=== PATIENT | female | born 1940 | race Caucasian/White ===

== ENCOUNTER 2016-11-24 09:47 | Outpatient (CLI) | payer MEDICARE, BC | END 2016-11-24 09:48 | disposition home or self-care (01) | DX: E78.5 Hyperlipidemia, unspecified (principal); R73.01 Impaired fasting glucose; I10 Essential (primary) hypertension; E74.39 Other disorders of intestinal carbohydrate absorption ==

== ENCOUNTER 2017-01-06 18:20 | Emergency (ER) | payer MEDICARE, BC ==
[2017-01-06] MEDS ORDERED: HYDROcod/ACETAM 5/325 MG TABLET PO STA (18:51)
[2017-01-06] MEDS ORDERED: HYDROcod/ACETAM 5/325 MG TABLET ONE (19:06)
== END 2017-01-06 19:22 | disposition home or self-care (01) ==
DX: S42.291A Other displaced fracture of upper end of right humerus, initial encounter for closed fracture (principal); W01.0XXA Fall on same level from slipping, tripping and stumbling without subsequent striking against object, initial encounter; Y93.01 Activity, walking, marching and hiking; Y92.481 Parking lot as the place of occurrence of the external cause; R03.0 Elevated blood-pressure reading, without diagnosis of hypertension; M19.90 Unspecified osteoarthritis, unspecified site; Z85.3 Personal history of malignant neoplasm of breast
CPT/HCPCS: 73060; 99283; 99284; A9270

== ENCOUNTER 2017-01-16 10:47 | Outpatient (CLI) | payer MEDICARE, BC | END 2017-01-16 10:48 | disposition home or self-care (01) | DX: S42.221A 2-part displaced fracture of surgical neck of right humerus, initial encounter for closed fracture (principal) ==

== ENCOUNTER 2017-02-26 12:58 | Outpatient (CLI) | payer MEDICARE, BC | END 2017-02-26 12:59 | disposition home or self-care (01) | DX: C50.411 Malignant neoplasm of upper-outer quadrant of right female breast (principal) ==

== ENCOUNTER 2017-05-17 11:00 | Outpatient (CLI) | payer MEDICARE, BC ==
--- NOTE | 2017-05-17 17:16 | XRAY Report ---
TWO VIEW RIGHT SHOULDER: 05/17/2017 CLINICAL INDICATION: Fracture followup. Internal and external rotational views of the right shoulder are compared to previous films of 2016. There is increased callus formation at the proximal humeral fracture site. Alignment appears stable. Degenerative changes appear stable. No new fracture is appreciated. IMPRESSION: CONTINUED HEALING OF THE PROXIMAL RIGHT HUMERAL FRACTURE. JOB #: [id number] EXT JOB #:
== END 2017-05-17 11:01 | disposition home or self-care (01) ==
LOC: DI.N 11:00
PROVIDERS: ATTEND Orthopaedic Surgery
DX: S42.221D 2-part displaced fracture of surgical neck of right humerus, subsequent encounter for fracture with routine healing (principal)

== ENCOUNTER 2017-08-20 12:50 | Outpatient (CLI) | payer MEDICARE, BC ==
--- NOTE | 2017-08-20 15:53 | Mammography Report ---
DIGITAL DIAGNOSTIC BILATERAL MAMMOGRAM: 08/20/2017 CLINICAL INDICATION: A 76-year-old with personal history of right breast cancer status post lumpecto my and radiation therapy. TECHNIQUE: Bilateral CC and MLO views, right true lateral and spot magnification views. COMPARISON: 02/26/2017, 07/27/2016, 02/07/2016, 08/10/2015, 06/30/2015, 06/24/2015, 10/10/2006. FINDINGS: The breasts demonstrate scattered fibroglandular densities bilaterally. Postoperative and post-treatment changes in the right upper outer quadrant are stable. No suspicious masses, clustere d microcalcifications, or regions of architectural distortion are identified. IMPRESSION: BENIGN FINDINGS. RECOMMENDATION: Routine annual mammography unless otherwise clinically indicated. BIRADS CATEGORY 2 - BENIGN FINDINGS. STANDARD QUALIFYING STATEMENTS 1. This examination was reviewed with the aid of Computer-Aided Detection (CAD). 2. A negative or benign imaging report should not delay biopsy if clinically suspicious findings are present. Consider surgical consultation if warranted. More than 5% of cancers are not identified by i maging. 3. Dense breasts may obscure an underlying neoplasm. 14:9:57 JOB #: [id number] EXT JOB #:[id number]
== END 2017-08-20 12:51 | disposition home or self-care (01) ==
LOC: DI 12:50
PROVIDERS: ATTEND Internal Medicine Hematology & Oncology
DX: C50.411 Malignant neoplasm of upper-outer quadrant of right female breast (principal)
CPT/HCPCS: 77066

== ENCOUNTER 2018-01-10 08:49 | Outpatient (CLI) | payer MEDICARE, BC ==
[2018-01-10 13:22] LABS: HB2 TOTAL 14.4 g/dL; HEMOGLOBIN A1C 0.54 g/dL; HEMOGLOBIN A1C % 5.6 % (4.6-6.2)
[2018-01-10 13:25] LABS: ALBUMIN 4.1 g/dL (3.2-5.5); ALBUMIN/GLOBULIN RATIO 1.3 (1.0-2.2); ALKALINE PHOSPHATASE 70 IU/L (42-121); ALT ALANINE AMINOTRANSFERASE 22 IU/L (10-60); AST ASPARTATE AMINOTRANSFERASE 26 IU/L (10-42); BILIRUBIN,TOTAL 0.9 mg/dL (0.2-1.0); BUN - BLOOD UREA NITROGEN 14 mg/dL (6-20); CARBON DIOXIDE - CO2 26 mmol/L (21-32); CHLORIDE 104 mmol/L (101-111); CHOL/HDL RATIO 6.2 (<4.4); CHOLESTEROL 255 mg/dL; CREATININE 0.6 mg/dL (0.4-1.0); GFR - MDRD 97 (>89); GLUCOSE 104 mg/dL (70-100); HDL CHOLESTEROL 41 mg/dL; LDL CHOLESTEROL,CALCULATED 172 mg/dL; LDL/HDL RATIO 4.2 (<4.4); SODIUM 138 mmol/L (135-145); TOTAL PROTEIN 7.2 g/dL (6.7-8.2); VLDL CHOLESTEROL 42 mg/dL
== END 2018-01-10 08:50 ==
LOC: LAB.WCP 08:49
PROVIDERS: ATTEND Family Medicine
DX: I35.0 Nonrheumatic aortic (valve) stenosis (principal); R73.09 Other abnormal glucose; E78.5 Hyperlipidemia, unspecified; I10 Essential (primary) hypertension; E74.39 Other disorders of intestinal carbohydrate absorption
CPT/HCPCS: 36415; 80053; 80061; 83036; 83721

== ENCOUNTER 2018-08-02 09:29 | Outpatient (CLI) | payer MEDICARE, BC ==
--- NOTE | 2018-08-02 12:45 | Mammography Report ---
Reason: VIK VELASQUEZ wTOMO Procedure Date: 08/02/2018 Accession Number: [id number] / [id number] Procedure: DAVID - Diagnostic Bilat 3D [place] CPT Code: 77448 FULL RESULT: EXAM: Diagnostic Bilat 3D [place] DATE: 08/02/2018 10:29 AM CLINICAL HISTORY: 77-year-old female with personal history of right breast cancer status post lumpectomy and radiation. TECHNIQUE: Bilateral CC and MLO views as well as a right exaggerated cc view were obtained in 2-D technique. 3-D bilateral CC and MLO views were also obtained. COMPARISON: 08/20/2017, 02/26/2017, 07/27/2016, 02/07/2016. FINDINGS: The breasts demonstrate heterogeneously dense fibroglandular parenchyma bilaterally. Stable postsurgical and postradiation findings are seen in the right breast. No suspicious mass, architectural distortion or microcalcifications are identified. IMPRESSION: Benign findings RECOMMENDATION: Recommend routine annual Screening mammography unless otherwise clinically indicated. BIRADS CATEGORY 2: Benign findings STANDARD QUALIFYING STATEMENTS: 1. This examination was not reviewed with the aid of Computer-Aided Detection (CAD). 2. A negative or benign imaging report should not delay biopsy if clinically suspicious findings are present. Consider surgical consultation if warrented. More than 5% of cancers are not identified by imaging. 3. Dense breasts may obscure an underlying neoplasm. 4. This examination was reviewed with the aid of 3D imaging (tomography).
== END 2018-08-02 09:30 | disposition home or self-care (01) ==
LOC: DI 09:29
PROVIDERS: ATTEND Internal Medicine Hematology & Oncology
DX: C50.411 Malignant neoplasm of upper-outer quadrant of right female breast (principal)
CPT/HCPCS: 77062

== ENCOUNTER 2019-03-20 08:00 | Outpatient (CLI) | payer MEDICARE, BC ==
[2019-03-20 18:59] LABS: BASOPHILS # (AUTO) 0.1 10^3/uL (0.0-0.1); BASOPHILS % (AUTO) 1.1 %; EOSINOPHILS # (AUTO) 0.4 10^3/uL (0.0-0.7); EOSINOPHILS % (AUTO) 5.3 %; HGB - HEMOGLOBIN 12.8 g/dL (12.0-16.0); LYMPHOCYTES # (AUTO) 2.5 10^3/uL (1.5-3.5); LYMPHOCYTES % (AUTO) 35.8 %; MEAN CORPUSCULAR HEMOGLOBIN 31.8 pg (27.0-31.0); MEAN CORPUSCULAR HGB CONC 33.5 g/dL (32.0-36.0); MEAN PLATELET VOLUME 8.7 fL (7.9-10.8); MONOCYTES # (AUTO) 0.7 10^3/uL (0.0-1.0); MONOCYTES % (AUTO) 10.2 %; NEUTROPHILS # (AUTO) 3.3 10^3/uL (1.5-6.6); NEUTROPHILS % (AUTO) 47.6 %; PLT - PLATELET COUNT 189 10^3/uL (130-450); RED BLOOD COUNT 4.03 10^6/uL (4.20-5.40); RED CELL DISTRIBUTION WIDTH 12.8 % (12.0-15.0)
[2019-03-20 19:12] LABS: ALBUMIN/GLOBULIN RATIO 1.4 (1.0-2.2); ALKALINE PHOSPHATASE 67 IU/L (42-121); ALT ALANINE AMINOTRANSFERASE 18 IU/L (10-60); AST ASPARTATE AMINOTRANSFERASE 22 IU/L (10-42); BILIRUBIN,TOTAL 0.5 mg/dL (0.2-1.0); BUN - BLOOD UREA NITROGEN 16 mg/dL (6-20); CALCIUM 9.2 mg/dL (8.5-10.3); CARBON DIOXIDE - CO2 27 mmol/L (21-32); CHLORIDE 105 mmol/L (101-111); CHOL/HDL RATIO 7.1 (<4.4); CHOLESTEROL 256 mg/dL; CREATININE 0.7 mg/dL (0.4-1.0); GFR - MDRD 81 (>89); GLUCOSE 96 mg/dL (70-100); HDL CHOLESTEROL 36 mg/dL; LDL CHOLESTEROL,CALCULATED 144 mg/dL; SODIUM 141 mmol/L (135-145); TOTAL PROTEIN 6.9 g/dL (6.7-8.2); VLDL CHOLESTEROL 76 mg/dL
[2019-03-20 19:36] LABS: HB2 TOTAL 13.2 g/dL; HEMOGLOBIN A1C 0.55 g/dL
== END 2019-03-20 23:59 | disposition home or self-care (01) ==
LOC: LAB.WCP 08:00
PROVIDERS: ATTEND Family Medicine
DX: I10 Essential (primary) hypertension (principal); R73.02 Impaired glucose tolerance (oral); E78.5 Hyperlipidemia, unspecified
CPT/HCPCS: 36415; 80053; 80061; 83036; 83721; 85025

== ENCOUNTER 2019-08-05 10:28 | Outpatient (CLI) | payer MEDICARE, BC ==
--- NOTE | 2019-08-06 08:41 | DEXA Report ---
Reason: POST MENOPAUSAL Procedure Date: 08/05/2019 Accession Number: [id number] / [id number] Procedure: DEX - Dexa Spine and/or Hip CPT Code: FULL RESULT: EXAM: Dexa Spine and/or Hip DATE: 08/05/2019 11:13 AM CLINICAL HISTORY: POST MENOPAUSAL TECHNIQUE: Dual energy x-ray absorptiometry (DXA) was performed on a [employer] System. Regions measured are the AP Spine, femoral neck, and if needed forearm. COMPARISON: 08/21/2017. In accordance with the International Society for Clinical Densitometry (ISCD) guidelines, data from previous exams may be reanalyzed using current recommendations and techniques. This is done to allow a more accurate basis for comparison with the current study. FINDINGS: The data for the lumbar spine is as follows: BMD (g/cm/cm) T-SCORE Z-SCORE REGION L1 1.161 0.3 1.5 L2 1.114 -0.7 0.5 L3 1.133 -0.6 0.7 L4 1.293 0.8 2.0 TOTAL 1.179 0.0 1.2 NOTE: All evaluable vertebrae are used for classification The data for the hip is as follows: BMD (g/cm/cm) T-SCORE Z-SCORE REGION Neck 0.920 -0.8 0.8 TOTAL 0.939 -0.5 0.9 NOTE: The femoral neck or total proximal femur, whichever is lowest, is used for classification. DXA RESULTS SUMMARY: Spine SCAN DATE AGE BMD CHANGE VS CHANGE VS PREVIOUS PREVIOUS % 9/05/2019 [age] 1.89 0.006 0.5 08/21/2017 [age] 1[age]173 * Denotes significant change at the 95% confidence level. Denotes dissimilar scan types or analysis methods. DXA RESULTS SUMMARY: Hip SCAN DATE AGE BMD CHANGE VS CHANGE VS PREVIOUS PREVIOUS % [birth year]05[birth year]2019 [age] 0[age]939 0.008 0.9 08/21/2017 [age] 0[age]931 * Denotes significant change at the 95% confidence level. Denotes dissimilar scan types or analysis methods. IMPRESSION: THE WHO CLASSIFICATION BASED ON THE INTERNATIONAL REFERENCE STANDARD IS NORMAL. THE FRACTURE RISK IS NOT INCREASED. RECOMMENDATION: Patients with diagnosis of osteoporosis or osteopenia should have regular bone mineral density assessment. For those eligible for Medicare, routine testing is allowed once every 2 years. Testing frequency can be increased for patients who have rapidly progressing disease or for those who are receiving medical therapy to restore bone mass. COMMENT: World Health Organization (WHO) definitions for osteoporosis and osteopenia: NORMAL BMD: T-score at -1.0 or higher, fracture risk is low OSTEOPENIA BMD: T-score between -1.0 and -2.5, fracture risk is increased. OSTEOPOROSIS BMD: T-score at -2.5 or lower, fracture risk is high. National Osteoporosis Foundation recommends: 1. Obtain adequate dietary calcium (at least 1200 mg per day) and vitamin D (400-800 international units per day). 2. Participate, as appropriate, in regular weightbearing and muscle-strengthening exercise. 3. Avoid tobacco use and reduce alcohol and caffeine intake. 4. For more detailed information see the website at www.NOF.org.
== END 2019-08-05 10:29 | disposition home or self-care (01) ==
LOC: DI 10:28
PROVIDERS: ATTEND Internal Medicine Hematology & Oncology
DX: Z78.0 Asymptomatic menopausal state (principal)
CPT/HCPCS: 77080

== ENCOUNTER 2019-08-05 10:29 | Outpatient (CLI) | payer MEDICARE, BC ==
--- NOTE | 2019-08-05 12:14 | Mammography Report ---
Reason: RT BREAST CA Procedure Date: 08/05/2019 Accession Number: [id number] / [id number] Procedure: DAVID - Diagnostic Dig Bilat CPT Code: FULL RESULT: EXAM: Diagnostic Dig Bilat DATE: 08/05/2019 11:43 AM CLINICAL HISTORY: Diagnostic examination. Personal history of breast cancer status post right breast lumpectomy in 2014. TECHNIQUE: (B) - Bilateral CC, laterally exaggerated CC, MLO views were obtained. Right ML view was obtained. COMPARISON: 08/02/2018 through 06/24/2015. PARENCHYMAL PATTERN: (A) - The breast(s) demonstrate(s) scattered fibroglandular densities. FINDINGS: Postlumpectomy changes in the right breast are again seen, long-term expected typically benign evolution. There are no suspicious masses, calcifications, or areas of distortion. IMPRESSION: Benign findings. BI-RADS category 2. RECOMMENDATION: (ANNUAL) - Recommend routine annual screening mammography. BI-RADS CATEGORY: (2) - Benign Findings. STANDARD QUALIFYING STATEMENTS: 1. This examination was not reviewed with the aid of Computer-Aided Detection (CAD). 2. A negative or benign imaging report should not preclude biopsy if clinically suspicious findings are present. 3. Dense breasts may obscure an underlying neoplasm. 4. This examination was reviewed with the aid of 3D breast imaging (tomosynthesis).
== END 2019-08-05 10:30 | disposition home or self-care (01) ==
LOC: DI 10:29
PROVIDERS: ATTEND Internal Medicine Hematology & Oncology
DX: Z12.31 Encounter for screening mammogram for malignant neoplasm of breast (principal); C50.411 Malignant neoplasm of upper-outer quadrant of right female breast
CPT/HCPCS: 77066

== ENCOUNTER 2020-03-09 11:33 | Outpatient (CLI) | payer MEDICARE, BC ==
[2020-03-09 14:14] LABS: ALBUMIN/GLOBULIN RATIO 1.3 (1.0-2.2); BILIRUBIN,TOTAL 0.8 mg/dL (0.2-1.0); CALCIUM 9.3 mg/dL (8.5-10.3); CREATININE 0.7 mg/dL (0.4-1.0); TOTAL PROTEIN 7.1 g/dL (6.7-8.2)
== END 2020-03-09 23:59 | disposition home or self-care (01) ==
LOC: LAB.WCP 11:33
PROVIDERS: ATTEND Internal Medicine Cardiovascular Disease
DX: I42.8 Other cardiomyopathies (principal); I42.1 Obstructive hypertrophic cardiomyopathy
CPT/HCPCS: 36415; 80053

== ENCOUNTER 2020-08-27 10:35 | Outpatient (CLI) | payer MEDICARE, BC ==
--- NOTE | 2020-08-30 16:02 | Mammography Report ---
BILATERAL DIGITAL SCREENING MAMMOGRAM 3D/2D: 08/27/2020 CLINICAL: Routine screening. Personal history of right breast cancer. Routine screening. Comparison is made to exams dated: 08/05/2019 mammogram, 08/02/2018 mammogram, 08/20/2016 mammogram, 02/07/2016 mammogram, 08/10/2015 localization, and 07/28/2015 breast MRI - [facility]. The tissue of both breasts is heterogeneously dense. This may lower the sensitivity of mammograph y. There are benign post operative findings in the right breast. No significant masses, calcifications, or other findings are seen in either breast. There has been no significant interval change. IMPRESSION: BENIGN There is no mammographic evidence of malignancy. A 1 year screening mammogram is recommended. This exam was interpreted at Station ID: [id number]. NOTE: For mammograms, a report in lay terms will be sent to the patient. Approximately 15% of breast malignancies will not be visualized mammographically. In the management of a palpable breast mass, a negative mammogram must not discourage biopsy of a clinically suspicious lesion. Electronically Signed By: Juan Borrego M.D. ddp/penrad:08/27/2020 13:36:11 ACR BI-RADS Category 2: Benign Finding(s) 3342F PARENCHYMAL PATTERN: (D) - The breast(s) demonstrate(s) heterogeneously dense fibroglandular florecita vanegas. BI-RADS CATEGORY: (2) - 2 RECOMMENDATION: (ANNUAL) - Recommend routine annual screening mammography. [id number] 1 year screening LATERALITY: (B)
== END 2020-08-27 10:36 | disposition home or self-care (01) ==
LOC: DI.N 10:35
PROVIDERS: ATTEND Internal Medicine Hematology & Oncology
DX: Z12.31 Encounter for screening mammogram for malignant neoplasm of breast (principal); Z08 Encounter for follow-up examination after completed treatment for malignant neoplasm; Z85.3 Personal history of malignant neoplasm of breast
CPT/HCPCS: 77063; 77067

== ENCOUNTER 2021-04-12 07:00 | Outpatient (CLI) | payer MEDICARE, BC ==
--- NOTE | 2021-04-12 15:14 | XRAY Report ---
PROCEDURE: Shoulder 3 View RT INDICATIONS: R SHOULDER PX TECHNIQUE: 3 views of the shoulder were acquired. COMPARISON: None. FINDINGS: Bones: No acute fractures or dislocations. No suspicious bony lesions. Visualized ribs appear inta ct. There is deformity of the right humeral head consistent with previous fracture. Severe acromiocl avicular degenerative narrowing is present. Glenohumeral narrowing is also noted. Soft tissues: No suspicious soft tissue calcifications. IMPRESSION: Significant degenerative change of the shoulder including acromioclavicular and glenohum eral narrowing. Arthritic change is noted secondary to prior humeral fracture. Reviewed by: Zayra Heard MD on 04/12/2021 3:12 PM PDT Approved by: Zayra Heard MD on 04/12/2021 3:12 PM PDT Station ID: [id number]
== END 2021-04-12 23:59 | disposition home or self-care (01) ==
LOC: DI.N 07:00
PROVIDERS: ATTEND Physician Assistant
DX: M19.111 Post-traumatic osteoarthritis, right shoulder (principal); S42.291S Other displaced fracture of upper end of right humerus, sequela

== ENCOUNTER 2021-08-04 13:53 | Outpatient (CLI) | payer MEDICARE, BC ==
--- NOTE | 2021-08-04 14:55 | DEXA Report ---
PROCEDURE: DEXA Spine and/or Hip INDICATIONS: POST MENOPAUSAL TECHNIQUE: Dual energy x-ray absorptiometry (DXA) was performed on a [employer] System. Regions measur ed are the AP Spine, femoral neck, and if needed forearm. COMPARISON: August 05, 2019. FINDINGS: Lumbar Spine: Bone Mineral Density 1.208 g/cm/cm,T score 0.1, normal Left Femoral Neck: Bone Mineral Density 0.919 g/cm/cm, T score -0.7, normal (T score greater or equal to -1.0: NORMAL) (T score from -1.1 to -2.4: OSTEOPENIA) (T score less than or equal to -2.5 to: OSTEOPOROSIS) Impression: No appreciable osteoporosis or osteopenia. Patients with diagnosis of osteoporosis or osteopenia should have regular bone mineral density assess ment. For those eligible for Medicare, routine testing is allowed once every 2 years. Testing frequ ency can be increased for patients who have rapidly progressing disease or for those who are receivin g medical therapy to restore bone mass. Reviewed by: Chester Menchaca MD on 08/04/2021 2:54 PM PDT Approved by: Chester Menchaca MD on 08/04/2021 2:54 PM PDT Station ID: [id number]
== END 2021-08-04 13:54 | disposition home or self-care (01) ==
LOC: DI 13:53
PROVIDERS: ATTEND Internal Medicine Hematology & Oncology
DX: Z78.0 Asymptomatic menopausal state (principal)

== ENCOUNTER 2021-08-22 13:25 | Outpatient (CLI) | payer MEDICARE, BC ==
--- NOTE | 2021-08-23 08:02 | Mammography Report ---
BILATERAL DIGITAL SCREENING MAMMOGRAM 3D/2D: 08/22/2021 CLINICAL: Routine screening. Personal history of right breast cancer. Comparison is made to exams dated: 08/27/2020 mammogram, 08/05/2019 mammogram, and 08/02/2018 mammogr am - [facility]. The tissue of both breasts is heterogeneously dense. This may low er the sensitivity of mammography. There are benign post operative findings in the right breast. No significant masses, calcifications, or other findings are seen in either breast. There has been no significant interval change. IMPRESSION: BENIGN There is no mammographic evidence of malignancy. A 1 year screening mammogram is recommended. This exam was interpreted at Station ID: [id number]. NOTE: For mammograms, a report in lay terms will be sent to the patient. Approximately 15% of breast malignancies will not be visualized mammographically. In the management of a palpable breast mass, a negative mammogram must not discourage biopsy of a clinically suspicious lesion. Electronically Signed By: Sergio bergman/leno:08/22/2021 16:56:54 ACR BI-RADS Category 2: Benign Finding(s) 3342F PARENCHYMAL PATTERN: (D) - The breast(s) demonstrate(s) heterogeneously dense fibroglandular florecita vanegas. BI-RADS CATEGORY: (2) - 2 RECOMMENDATION: (ANNUAL) - Recommend routine annual screening mammography. [id number] 1 year screening LATERALITY: (B)
== END 2021-08-22 13:26 | disposition home or self-care (01) ==
LOC: DI 13:25
PROVIDERS: ATTEND Internal Medicine Hematology & Oncology
DX: Z12.31 Encounter for screening mammogram for malignant neoplasm of breast (principal); Z08 Encounter for follow-up examination after completed treatment for malignant neoplasm; Z85.3 Personal history of malignant neoplasm of breast; Z79.811 Long term (current) use of aromatase inhibitors

== ENCOUNTER 2021-11-22 08:00 | Outpatient (CLI) | payer MEDICARE, BC ==
--- NOTE | 2021-11-22 14:00 | XRAY Report ---
PROCEDURE: Tib/Fib LT INDICATIONS: Left foot and ankle pain TECHNIQUE: 2 views of the tibia and fibula were acquired. COMPARISON: None FINDINGS: No fracture. Grossly anatomic alignment of the ankle and knee. No suspicious lytic or blastic osseous lesion. No periosteal reaction identified. Regional soft tissues are normal. IMPRESSION: No acute or otherwise significant finding. Reviewed by: Judd Sierra MD on 11/22/2021 1:58 PM PST Approved by: Judd Sierra MD on 11/22/2021 1:58 PM PST Station ID: [id number]
== END 2021-11-22 23:55 ==
LOC: DI.N 08:00
PROVIDERS: ATTEND Nurse Practitioner
DX: M25.572 Pain in left ankle and joints of left foot (principal)

== ENCOUNTER 2022-03-14 08:25 | Outpatient (CLI) | payer MEDICARE, BC ==
[2022-03-14 11:51] LABS: BASOPHILS # (AUTO) 0.1 10^3/uL (0.0-0.1); EOSINOPHILS # (AUTO) 0.4 10^3/uL (0.0-0.7); EOSINOPHILS % (AUTO) 5.1 %; HCT - HEMATOCRIT 40.9 % (37.0-47.0); HGB - HEMOGLOBIN 13.3 g/dL (12.0-16.0); LYMPHOCYTES # (AUTO) 2.4 10^3/uL (1.5-3.5); LYMPHOCYTES % (AUTO) 32.7 %; MEAN CORPUSCULAR HEMOGLOBIN 31.6 pg (27.0-31.0); MEAN CORPUSCULAR HGB CONC 32.5 g/dL (32.0-36.0); MEAN CORPUSCULAR VOLUME 97.1 fL (81.0-99.0); MEAN PLATELET VOLUME 10.7 fL (7.9-10.8); MONOCYTES # (AUTO) 0.7 10^3/uL (0.0-1.0); MONOCYTES % (AUTO) 9.8 %; NEUTROPHILS # (AUTO) 3.7 10^3/uL (1.5-6.6); NEUTROPHILS % (AUTO) 50.8 %; PLT - PLATELET COUNT 215 10^3/uL (130-450); RED BLOOD COUNT 4.21 10^6/uL (4.20-5.40); RED CELL DISTRIBUTION WIDTH 12.4 % (12.0-15.0); WHITE BLOOD COUNT 7.2 x10^3/uL (4.8-10.8)
[2022-03-14 12:23] LABS: ALBUMIN/GLOBULIN RATIO 1.2 (1.0-2.2); ALKALINE PHOSPHATASE 54 IU/L (42-121); ALT ALANINE AMINOTRANSFERASE 21 IU/L (10-60); AST ASPARTATE AMINOTRANSFERASE 23 IU/L (10-42); BILIRUBIN,TOTAL 0.8 mg/dL (0.2-1.0); BUN - BLOOD UREA NITROGEN 21 mg/dL (6-20); CALCIUM 9.3 mg/dL (8.5-10.3); CARBON DIOXIDE - CO2 28 mmol/L (21-32); CHLORIDE 103 mmol/L (101-111); CHOL/HDL RATIO 6.3 (<4.4); CHOLESTEROL 258 mg/dL; CREATININE 0.8 mg/dL (0.4-1.0); GFR - MDRD 69 (>89); GLUCOSE 123 mg/dL (70-100); HDL CHOLESTEROL 41 mg/dL; LDL CHOLESTEROL,CALCULATED 176 mg/dL; LDL/HDL RATIO 4.3 (<4.4); POTASSIUM 4.2 mmol/L (3.5-5.0); SODIUM 139 mmol/L (135-145); TOTAL PROTEIN 7.3 g/dL (6.7-8.2); TRIGLYCERIDES 205 mg/dL; VLDL CHOLESTEROL 41 mg/dL
[2022-03-14 12:31] LABS: THYROID STIMULATING HORMONE 3.09 uIU/mL (0.34-5.60)
[2022-03-14 12:45] LABS: ESTIMATED AVERAGE GLUCOSE 117 mg/dL (70-100); HEMOGLOBIN A1c% 5.7 % (4.27-6.07)
== END 2022-03-14 08:26 | disposition home or self-care (01) ==
LOC: LAB.N 08:25
PROVIDERS: ATTEND Nurse Practitioner Family
DX: I10 Essential (primary) hypertension (principal); R73.9 Hyperglycemia, unspecified; E78.5 Hyperlipidemia, unspecified
CPT/HCPCS: 36415; 80053; 80061; 83036; 83721; 84443; 85025

== ENCOUNTER 2022-08-22 10:40 | Outpatient (CLI) | payer MEDICARE, BC ==
--- NOTE | 2022-08-23 12:13 | Mammography Report ---
BILATERAL DIGITAL SCREENING MAMMOGRAM 3D/2D: 08/22/2022 CLINICAL: Routine screening. Personal history of right breast cancer. Comparison is made to exams dated: 08/22/2021 mammogram, 08/27/2020 mammogram, 08/05/2019 mammogram, a nd 08/02/2018 mammogram - [facility]. Both breasts are heterogeneously dense, which may obscure small masses (category c / 51-75% glandular tissue). There are benign post operative findings in the right breast. No significant masses, calcifications, or other findings are seen in either breast. There has been no significant interval change. IMPRESSION: BENIGN There is no mammographic evidence of malignancy. A 1 year screening mammogram is recommended. This exam was interpreted at Station ID: [id number]. NOTE: For mammograms, a report in lay terms will be sent to the patient. Approximately 15% of breast malignancies will not be visualized mammographically. In the management of a palpable breast mass, a negative mammogram must not discourage biopsy of a clinically suspicious lesion. Electronically Signed By: Sergio bergman/leno:08/22/2022 15:31:08 ACR BI-RADS Category 2: Benign Finding(s) 3342F PARENCHYMAL PATTERN: (D) - The breast(s) demonstrate(s) heterogeneously dense fibroglandular florecita vanegas. BI-RADS CATEGORY: (2) - 2 RECOMMENDATION: (ANNUAL) - Recommend routine annual screening mammography. [id number] 1 year screening LATERALITY: (B)
== END 2022-08-22 10:41 | disposition home or self-care (01) ==
LOC: DI.N 10:40
DX: Z12.31 Encounter for screening mammogram for malignant neoplasm of breast (principal); Z85.3 Personal history of malignant neoplasm of breast

== ENCOUNTER 2023-01-09 10:22 | Emergency (ER) | payer MEDICARE, BC ==
--- NOTE | 2023-01-09 12:51 | ED Physician Documentation ---
History of Present Illness - Stated complaint Stated Complaint: PAIN S/P FALL - Chief complaint Chief Complaint: Trauma Ch/Bk - History obtained from History obtained from: Patient - Additonal information Additional information: The patient comes to the emergency department chief complaint of ground-level fall 2 days ago and rectal bleeding that started yesterday. The patient states that she tripped and fell 2 days ago and landed on a mat. She states she landed on her left hip but did not hit her head or lose consciousness. She has been able to ambulate on the hip since, though she did have to scoot herself across the floor in order to grasp something to help her stand up. The patient states she felt more or less fine after the fall but the next morning, she went to have a bowel movement and noticed that there was bright red blood in the toilet bowl. Patient denies any abdominal pain, nausea, vomiting, or lightheadedness. She is not on any anticoagulants. She denies having this happen before although she does have a history of some hemorrhoids which are still present. The patient states that several hours later, she felt a strong urge to have a bowel movement but she was incontinent prior to getting to the toilet and that it just seemed to be blood. The patient has not had any episodes since. She has had a bowel movement this morning which she states was a very small nugget that was "as black as the damon of spades". She did not at that time noticed any bright red blood whatsoever. The patient otherwise feels normal except for some soreness in her hip and denies any other complaints at this time. She states she is concerned that something is "terribly wrong" and that she is bleeding internally. 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 : None HEENT: None Psych: Depression Musculoskeletal: Osteoarthritis, Fibromyalgia Derm: Rosacea - Past Surgical History Past Surgical History: Yes HEENT: Cataracts Derm: Skin cancer surgery - Present Medications Home Medications: Ambulatory Orders Medication Instructions Recorded Confirmed Cinnamon Bark [Cinnamon] 500 mg PO DAILY 02/20/13 10/02/22 Milk Thistle 240 mg PO DAILY 02/20/13 01/09/23 Multivits-Min/FA/Lycopene/Lut 1 each PO DAILY 02/20/13 01/09/23 [Centrum Silver Tablet] [place]-3 Fatty Acids [Fish Oil] 1,000 mg PO DAILY 02/20/13 01/09/23 Red Yeast Rice 600 mg PO BID 02/20/13 01/09/23 Sertraline [Zoloft] 50 mg PO DAILY 02/20/13 01/09/23 Ubidecarenone [Co Q-10] 200 mg PO DAILY 02/20/13 01/09/23 Flaxseed Oil [Flax Seed Oil] 1,000 mg PO DAILY 02/24/13 01/09/23 Cholecalciferol (Vitamin D3) 5,000 unit PO DAILY 08/09/15 01/09/23 [Vitamin D-3] Nadolol 40 mg PO DAILY 08/27/18 01/09/23 Anastrozole 1 mg PO DAILY #90 tablet 09/29/22 10/02/22 Disopyramide Phosphate [Norpace] 100 mg PO BID 01/09/23 01/09/23 - Allergies Allergies/Adverse Reactions: Allergies Allergy/AdvReac Type Severity Reaction Status Date / Time verapamil AdvReac Severe Confusion Verified 01/09/23 10:56 - Social History Does the pt smoke?: No Smoking Status: Never smoker Does the pt drink ETOH?: No Does the pt have substance abuse?: No - Immunizations Immunizations are current?: Yes PD ED PE NORMAL - Vitals Vital signs reviewed: Yes - General General: Alert and oriented X 3, No acute distress, Well developed/nourished - HEENT HEENT: Atraumatic, PERRL, EOMI, Moist mucous membranes - Neck Neck: Supple, no meningeal sign - Cardiac Cardiac: RRR, No murmur, Strong equal pulses - Respiratory Respiratory: No respiratory distress, Clear bilaterally - Abdomen Abdomen: Soft, Non tender, Non distended - Rectal Rectal: Other (Mild amount of brown bloody residue about the skin external to the anal opening. No palpable hemorrhoids. No rectal mass. No bright red blood on the glove after rectal exam.) - Derm Derm: Warm and dry - Extremities Extremities: No deformity - Neuro Neuro: Alert and oriented X 3 - Psych Psych: Normal mood, Normal affect Results - Vitals Vitals: Vital Signs - 24 hr 01/09/23 01/09/23 01/09/23 10:52 12:19 14:07 Temperature 36.5 C Heart Rate 55 L 54 L 58 L Respiratory 16 24 20 Rate Blood Pressure 145/68 H 138/120 H 115/61 O2 Saturation 97 96 93 Oxygen O2 Source Room air - Labs Labs: Laboratory Tests 01/09/23 01/09/23 13:28 13:28 WBC 8.3 RBC 3.38 L Hgb 10.4 L Hct 33.0 L MCV 97.6 MCH 30.8 MCHC 31.5 L RDW 12.9 Plt Count 154 MPV 9.7 Neut # (Auto) 4.0 Lymph # (Auto) 2.9 Sutter # (Auto) 1.1 H Eos # (Auto) 0.2 Baso # (Auto) 0.1 Absolute Nucleated RBC 0.00 Nucleated RBC % 0.0 Sodium 142 Potassium 4.0 Chloride 105 Carbon Dioxide 28 Anion Gap 9.0 BUN 21 H Creatinine 0.8 Estimated GFR (MDRD) 69 L Glucose 100 Calcium 8.6 Total Bilirubin 0.9 AST 24 ALT 20 Alkaline Phosphatase 54 Total Protein 6.4 L Albumin 3.4 Globulin 3.0 Albumin/Globulin Ratio 1.1 Lipase 42 PD Medical Decision Making - ED course Complexity details: reviewed results, re-evaluated patient, considered differential, d/w patient ED course: I discussed with the patient that the bright red blood per rectum that is dripping into the toilet bowl is most likely 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 It is possible that during the fall, she traumatized one of the hemorrhoidal veins and that this has made it susceptible to bleeding. However, the fact that she is no longer bleeding with bowel movements is promising, as is the fact that she is hemodynamically stable and has no abdominal pain or tenderness. I will work her up with laboratory studies including CBC and ER abdominal panel. These have been done and reviewed by me and are unremarkable, and specifically, show a normal hemoglobin. I felt the patient was stable for discharge home. Her exam is extremely benign and I did not find any evidence of concerning level bleeding or cause for this. I have advised the patient to follow-up with her primary care physician to discuss whether further investigation is needed in regard to her bleeding. Departure - Departure Disposition: 01 Home, Self Care Clinical Impression: BRBPR (bright red blood per rectum), Ground-level fall Condition: Stable Instructions: ED Hematochezia Stable Comments: Your blood work looks great. You have no bright red blood in your rectum today and you have not had any episodes of bleeding today. You most likely are bleeding from one of your internal hemorrhoids and this is stabilized. If you have further concerns about your hemorrhoids, you will need to follow-up with your primary doctor. There is nothing emergently to be done at this time and you are not losing a dangerous amount of blood. There is no evidence of internal organ damage and you have a completely benign abdominal exam and stable heart rate and blood pressure, which would not be the case if you are doing significant bleeding within your abdomen or if you had any serious organ injury. Please follow-up with your doctor for further concerns. Discharge Date/Time: 01/09/23 14:54
[2023-01-09 13:36] LABS: BASOPHILS # (AUTO) 0.1 10^3/uL (0.0-0.1); BASOPHILS % (AUTO) 0.6 %; EOSINOPHILS # (AUTO) 0.2 10^3/uL (0.0-0.7); EOSINOPHILS % (AUTO) 2.9 %; HGB - HEMOGLOBIN 10.4 g/dL (12.0-16.0); LYMPHOCYTES # (AUTO) 2.9 10^3/uL (1.5-3.5); LYMPHOCYTES % (AUTO) 34.7 %; MEAN CORPUSCULAR HEMOGLOBIN 30.8 pg (27.0-31.0); MEAN CORPUSCULAR HGB CONC 31.5 g/dL (32.0-36.0); MEAN CORPUSCULAR VOLUME 97.6 fL (81.0-99.0); MEAN PLATELET VOLUME 9.7 fL (7.9-10.8); MONOCYTES # (AUTO) 1.1 10^3/uL (0.0-1.0); MONOCYTES % (AUTO) 13.1 %; NEUTROPHILS % (AUTO) 48.2 %; PLT - PLATELET COUNT 154 10^3/uL (130-450); RED BLOOD COUNT 3.38 10^6/uL (4.20-5.40); RED CELL DISTRIBUTION WIDTH 12.9 % (12.0-15.0); WHITE BLOOD COUNT 8.3 x10^3/uL (4.8-10.8)
[2023-01-09 13:53] LABS: ALBUMIN 3.4 g/dL (3.2-5.5); ALBUMIN/GLOBULIN RATIO 1.1 (1.0-2.2); BILIRUBIN,TOTAL 0.9 mg/dL (0.2-1.0); CALCIUM 8.6 mg/dL (8.5-10.3); CREATININE 0.8 mg/dL (0.4-1.0); TOTAL PROTEIN 6.4 g/dL (6.7-8.2)
[2023-01-09 14:08] VITALS: BP 115/61
== END 2023-01-09 14:54 | disposition home or self-care (01) ==
LOC: ED 10:22
DX: K62.5 Hemorrhage of anus and rectum (principal)
CPT/HCPCS: 36415; 80053; 83690; 85025; 99283

== ENCOUNTER 2023-06-23 10:19 | Outpatient (CLI) | payer MEDICARE, BC ==
[2023-06-23 18:24] LABS: BASOPHILS # (AUTO) 0.1 10^3/uL (0.0-0.1); BASOPHILS % (AUTO) 0.6 %; EOSINOPHILS # (AUTO) 0.3 10^3/uL (0.0-0.7); EOSINOPHILS % (AUTO) 3.5 %; HCT - HEMATOCRIT 31.5 % (37.0-47.0); HGB - HEMOGLOBIN 9.2 g/dL (12.0-16.0); LYMPHOCYTES # (AUTO) 2.1 10^3/uL (1.5-3.5); LYMPHOCYTES % (AUTO) 21.5 %; MEAN CORPUSCULAR HEMOGLOBIN 25.4 pg (27.0-31.0); MEAN CORPUSCULAR HGB CONC 29.2 g/dL (32.0-36.0); MEAN PLATELET VOLUME 10.5 fL (7.9-10.8); MONOCYTES # (AUTO) 1.1 10^3/uL (0.0-1.0); MONOCYTES % (AUTO) 11.2 %; NEUTROPHILS % (AUTO) 62.6 %; PLT - PLATELET COUNT 348 10^3/uL (130-450); RED BLOOD COUNT 3.62 10^6/uL (4.20-5.40); WHITE BLOOD COUNT 9.7 x10^3/uL (4.8-10.8)
[2023-06-23 18:31] LABS: SLIDE REVIEW? Indicated
[2023-06-23 19:01] LABS: FERRITIN 43.1 ng/mL (11.0-306.8)
[2023-06-23 19:55] LABS: PLATELET MORPHOLOGY RARE GIANT PLATELETS (NORMAL)
[2023-06-23 19:56] LABS: PLATELET ESTIMATE, MANUAL NORMAL (130-450,000) (NORMAL)
== END 2023-06-23 10:20 | disposition home or self-care (01) ==
LOC: LAB.N 10:19
PROVIDERS: ATTEND Nurse Practitioner Family
DX: D64.9 Anemia, unspecified (principal)
CPT/HCPCS: 36415; 82607; 82728; 82746; 83540; 84466; 85025

== ENCOUNTER 2023-07-30 11:13 | Outpatient (CLI) | payer MEDICARE, BC ==
[2023-07-30 18:08] LABS: BASOPHILS # (AUTO) 0.1 10^3/uL (0.0-0.1); BASOPHILS % (AUTO) 0.8 %; EOSINOPHILS # (AUTO) 0.3 10^3/uL (0.0-0.7); EOSINOPHILS % (AUTO) 2.6 %; HCT - HEMATOCRIT 32.6 % (37.0-47.0); HGB - HEMOGLOBIN 9.6 g/dL (12.0-16.0); LYMPHOCYTES # (AUTO) 2.2 10^3/uL (1.5-3.5); LYMPHOCYTES % (AUTO) 20.9 %; MEAN CORPUSCULAR HEMOGLOBIN 28.8 pg (27.0-31.0); MEAN CORPUSCULAR HGB CONC 29.4 g/dL (32.0-36.0); MEAN CORPUSCULAR VOLUME 97.9 fL (81.0-99.0); MEAN PLATELET VOLUME 9.7 fL (7.9-10.8); MONOCYTES # (AUTO) 1.1 10^3/uL (0.0-1.0); MONOCYTES % (AUTO) 10.2 %; NEUTROPHILS # (AUTO) 6.9 10^3/uL (1.5-6.6); PLT - PLATELET COUNT 300 10^3/uL (130-450); RED BLOOD COUNT 3.33 10^6/uL (4.20-5.40); RED CELL DISTRIBUTION WIDTH 18.3 % (12.0-15.0); WHITE BLOOD COUNT 10.7 x10^3/uL (4.8-10.8)
[2023-07-30 18:42] LABS: FERRITIN 40.1 ng/mL (11.0-306.8)
== END 2023-07-30 11:14 | disposition home or self-care (01) ==
LOC: LAB.N 11:13
PROVIDERS: ATTEND Nurse Practitioner Family
DX: D64.9 Anemia, unspecified (principal)
CPT/HCPCS: 36415; 82607; 82728; 82746; 83540; 84466; 85025

== ENCOUNTER 2023-08-27 12:43 | Outpatient (CLI) | payer MEDICARE, BC ==
--- NOTE | 2023-08-29 12:03 | Mammography Report ---
BILATERAL DIGITAL SCREENING MAMMOGRAM 3D/2D: 08/27/2023 CLINICAL: Routine screening. Personal history of right breast cancer. Comparison is made to exams dated: 08/22/2022 mammogram, 08/22/2021 mammogram, 08/27/2020 mammogram, mammogram, 08/02/2018 mammogram, and 08/20/2017 mammogram - [facility]. There are scattered areas of fibroglandular density in both breasts (category b / 25%-50% glandular t issue). There are benign post operative findings in the right breast. No significant masses, calcifications, or other findings are seen in either breast. IMPRESSION: BENIGN There is no mammographic evidence of malignancy. A 1 year screening mammogram is recommended. This exam was interpreted at Station ID: [id number]. NOTE: For mammograms, a report in lay terms will be sent to the patient. Approximately 15% of breast malignancies will not be visualized mammographically. In the management of a palpable breast mass, a negative mammogram must not discourage biopsy of a clinically suspicious lesion. Electronically Signed By: Deonna Fisher M.D., PH.D eb/penrad:08/28/2023 22:55:42 letter sent: No_Letter ACR BI-RADS Category 2: Benign Finding(s) 3342F PARENCHYMAL PATTERN: (A) - The breast(s) demonstrate(s) scattered fibroglandular densities. BI-RADS CATEGORY: (2) - 2 Mammogram [id number] 1 year screening LATERALITY: (B)
== END 2023-08-27 12:44 | disposition home or self-care (01) ==
LOC: DI.N 12:43
DX: Z12.31 Encounter for screening mammogram for malignant neoplasm of breast (principal); R92.323 Mammographic fibroglandular density, bilateral breasts; Z85.3 Personal history of malignant neoplasm of breast

== ENCOUNTER 2023-09-10 11:30 | Outpatient (CLI) | payer MEDICARE, BC | END 2023-09-10 11:31 | disposition home or self-care (01) | LOC: LAB.N 11:30 | PROVIDERS: ATTEND Nurse Practitioner | DX: Z53.9 Procedure and treatment not carried out, unspecified reason (principal) ==

== ENCOUNTER 2024-02-25 13:26 | Outpatient (CLI) | payer MEDICARE, BC ==
[2024-02-25 17:43] LABS: BASOPHILS % (AUTO) 0.5 %; EOSINOPHILS % (AUTO) 18.2 %; HCT - HEMATOCRIT 40.9 % (37.0-47.0); HGB - HEMOGLOBIN 11.9 g/dL (12.0-16.0); LYMPHOCYTES % (AUTO) 23.5 %; MEAN CORPUSCULAR HEMOGLOBIN 26.9 pg (27.0-31.0); MEAN CORPUSCULAR HGB CONC 29.1 g/dL (32.0-36.0); MEAN CORPUSCULAR VOLUME 92.5 fL (81.0-99.0); MEAN PLATELET VOLUME 11.3 fL (7.9-10.8); MONOCYTES % (AUTO) 8.8 %; NEUTROPHILS % (AUTO) 48.5 %; PLT - PLATELET COUNT 268 10^3/uL (130-450); RED BLOOD COUNT 4.42 10^6/uL (4.20-5.40); RED CELL DISTRIBUTION WIDTH 18.9 % (12.0-15.0); WHITE BLOOD COUNT 11.1 x10^3/uL (4.8-10.8)
[2024-02-25 17:50] LABS: BAND NEUTROPHILS % (MANUAL) 0 %
[2024-02-25 18:40] LABS: ABNORMAL LYMPHS % (MANUAL) 5 %; BASOPHILS # (MANUAL) 0.1 10^3/uL (0-0.1); BASOPHILS % (MANUAL) 1 %; EOSINOPHILS # (MANUAL) 2.3 10^3/uL (0-0.7); LYMPHOCYTES # (MANUAL) 1.9 10^3/uL (1.5-3.5); LYMPHOCYTES % (MANUAL) 12 %; MONOCYTES # (MANUAL) 0.6 10^3/uL (0.0-1.0); NEUTROPHILS # (MANUAL) 6.2 10^3/uL (1.5-6.6)
[2024-02-25 18:43] LABS: DIFFERENTIAL COMMENT MANUAL DIFFERENTIAL; PLATELET ESTIMATE, MANUAL NORMAL (130-450,000) (NORMAL); PLATELET MORPHOLOGY NORMAL APPEARANCE (NORMAL); RBC MORPHOLOGY (MULTIPLE) 1+ HYPOCHROMASIA (NORMAL)
== END 2024-02-25 13:27 | disposition home or self-care (01) ==
LOC: LAB.N 13:26
PROVIDERS: ATTEND Nurse Practitioner
DX: K92.1 Melena (principal)
CPT/HCPCS: 36415; 85025